=== PATIENT | female | born 1990 | race Caucasian/White ===

== ENCOUNTER 2019-01-25 05:30 | Inpatient (IN) | payer BC, OTHER ==
[2019-01-22 09:44] LABS: BASOPHILS 0.4 % (0-2); EOSINOPHILS 1.5 % (0-7); HEMATOCRIT 39.7 % (36.0-48.0); HEMOGLOBIN 13.1 g/dL (12-16); LYMPHOCYTES 34.7 % (15-50); MCH 27.9 pg (26.0-34.0); MCV 84.6 fL (80.0-100.0); MEAN PLATELET VOLUME 8.7 fL (7.4-10.4); NEUTROPHILS 56.4 % (40-80); PLATELET COUNT 339 10x3/uL (130-400); RBC 4.69 10x6/uL (4.00-5.40); RDW 13.4 % (11.5-14.5); WBC 5.4 10x3/uL (4.8-10.8)
[~2019-01-25] VITALS: Ht 165.1 cm; Wt 121.4 kg
[2019-01-25] VITALS (17 sets, daily range): BP systolic 105–133; BP diastolic 57–90; Ht 165.1 cm; Wt 121.4 kg
[~2019-01-25 05:30] MED LIST: LO LOESTRIN FE; LOESTRIN FE 1.51 TAB PO; NORCO 10/325 TA1 TA1 OR; ZOFRAN4 MG OTR
[2019-01-25 06:42] LABS: HCG URINE NEGATIVE (NEGATIVE)
--- NOTE | 2019-01-25 12:32 | NUR ---
1228 - CARE ASSUMED FROM TORITO MAYES RN
--- NOTE | 2019-01-25 13:20 | NUR ---
PT RCVD VIA STRETCHER TO ROOM 1273 FROM JALEEL IN RECOVERY. PT TRANSFERRED TO BED VIA BACK BOARD SLIDER. PT POSITIONED UP IN BED AND HOB ELEVATED TO APPROX 45DEGREES. PT IS SLIGHTY DROWSY BUT ORIENTED x3. PT RATES PAIN APPROX 9/10 AT THIS TIME, ABDOMINAL AND IN RIGHT SHOULDER AND ARM. LR INFUSING ORDERED TO PT'S RIGHT HAND PIV, C/D/I. NO SIGNS OF PHLEBITIS OR INFILTRATION. LARGE OCCLUSIVE DRESSING NOTED OVER LOW TRANSVERSE ABD INCISION IS C/D/I. NO VAGINAL BLEEDING NOTED, PERIPAD PLACED TO MONITOR. MARTINEZ CATH DRAINING PINK, BLOOD-TINGED URINE TO BEDSIDE DRAINAGE, TUBING SECURED VIA STAT LOCK TO INNER RIGHT THIGH. 45ML URINE EMPTIED FROM UROMETER. SCD'S ON LE BILAT AND ON PUMP. PT ASKING ABOUT PAIN MED AND WHERE HER FAMILY IS. SRUx2, CL PLACED IN PT'S HAND. WILL ADMIN PAIN MEDS ORDERED AND LOCATE PT'S FAMILY.
--- NOTE | 2019-01-25 13:57 | OP ---
PATIENT NAME: RADAMES KELLEY MEDICAL RECORD: [id number] :88 LOCATION:[facility] ADMISSION DATE: SURGEON: ROJAS AMIN MD DATE OF OPERATION: 01/25/2019 SURGEON: Dr. Malathi Lopez asked for intraoperative consultation. They were doing a diagnostic laparoscopy on a patient who had severe endometriosis. There were dense adhesions throughout the pelvis as well. The patient had had a previous oophorectomy causing additional pelvic adhesions. There were dense adhesions between the anterior surface of the rectum and posterior surface of the uterus. There were also several loops of small bowel adherent within the pelvis. I was called to evaluate the small and large bowel for injuries and/or defects. There was a serosal defect noted on the anterior surface of the colon. Serosa was reapproximated using interrupted 3-0 Vicryl suture. The small bowel loops were lysed with Metzenbaum scissor dissection. The small bowel was run. The small bowel was within the pelvis was run. There was no evidence of serosal defects noted. The pelvis was copiously irrigated and suctioned. Again, the sigmoid colon and rectum were meticulously inspected. There was no evidence of bowel injury. No evidence of bleeding, no evidence of succuss. The inferior portions of the small bowel were again run without any noticeable serosal defects. At this time, my portion of the procedure was terminated. Please see Dr. Lopez's operative note for full details of the operation. TRANSINT:[id number] Voice Confirmation ID: [id number] DOCUMENT ID: [id number] ROJAS AMIN MD at 1357 CC: [id number] DICTATION DATE: 01/25/19 1252 MANAGER MENTAL HEALTH: 01/25/[address] [facility] [address] [place] [address]
--- NOTE | 2019-01-25 14:12 | NUR ---
THIS RN TO ROOM FOR PT CHECK, INFORMED PT FAMILY NOT IN WAITING ROOM YET. PT C/O PAIN RATED 8/10 FOLLOWING ADMIN OF DOSE OF MORPHINE APROX 35MIN AGO. WILL NOTIFY DR WILLOUGHBY.
--- NOTE | 2019-01-25 14:22 | NUR ---
DR WILLOUGHBY PHONED REGARDING PT'S C/O PAIN RATED 8/10 APPROX 45MIN AFTER 4MG OF MORPHINE ADMIN IV. DR WILLOUGHBY ALSO INFORMED OF PT'S C/O RIGHT SHOULDER AND ARM PAIN. ORDERS RCVD FOR ADMIN ADDITIONAL 2MG MORPHINE x1 IVP NOW, AND PT MAY HAVE SIMETHICONE 80MG PO Q4HPRN, AND CLEAR LIQUID DIET VERIFIED. WILL PROCEED ORDERED.
--- NOTE | 2019-01-25 14:32 | NUR ---
THIS RN TO ROOM FOR PT CHECK. PT C/O NAUSEA, PT'S FATHER AT BEDSIDE. EMESIS BAG GIVEN, COOL CLOTHS TO PT'S FACE APPLIED BY HER MOTHER. PT ADMIN ZOFRAN IV, SEE EMAR FOR DOC. PT CONTINUES TO C/O PAIN, NOW RATES PAIN 9/10. WILL CHECK IF ORDER FOR MORPHINE IS VERIFIED BY PHARMACY AND ADMIN ORDERED.
--- NOTE | 2019-01-25 15:00 | NUR ---
PT ADMIN ONE TIME DOSE OF ADDITIONAL 2MG MORPHINE ORDERED, WELL PRN SIMETHICONE, SEE EMAR FOR DOC. 125ML PINK, BLOOD-TINGED URINE EMPTIED FROM MARTINEZ UROMETER. INCISION CHECK, OCCLUSIVE ABD DRSG NOTED TO BE C/D/I. PERIPAD CHECKED AND NOTED TO BE C/D. PT STATES "I WAS ON MY PERIOD, BUT IT SHOULD MOSTLY JUST BE SPOTTING NOW." ICE PACK REAPPLIED OVER ABD INCISION. PT'S MOTHER FEEDING HER ICE CHIPS AT THIS TIME. PT DENIES NAUSEA, STATES ZOFRAN HELPED. SRUx2, CL IN REACH. WILL CONT TO MONITOR.
--- NOTE | 2019-01-25 15:30 | NUR ---
THIS RN TO ROOM FOR PAIN REASSESSMENT. PT STATES PAIN IS STILL "ABOUT A 5, BUT MUCH BETTER THAN IT WAS." SCOPALAMINE PATCH BEHIND PT'S RIGHT EAR NOTED TO BE LOOSE, REAPPLIED TO SKIN. PT EATING ICE CHIPS FED BY HER MOTHER. PT DENIES FURTHER NEEDS AT THIS TIME. SRUx2, CL IN REACH.
--- NOTE | 2019-01-25 15:50 | NUR ---
THIS RN TO ROOM, PT NOTED TO BE DRY HEAVING, C/O WORSENING NAUSEA AND PAIN. PT RATES PAIN 6/[address] WILLOUGHBY PHONED IN SURGERY AND NOTIFIED OF PT'S COMPLAINTS. ORDER RCVD FOR 1MG DILAUDID IVP x1 NOW, AND 25MG PHENERGAN SLOW IVP Q4HPRN NAUSEA/VOMITING. WILL PROCEED ORDERED.
--- NOTE | 2019-01-25 16:15 | NUR ---
THIS RN TO ROOM. PT ADMIN 1MG DILAUDID ORDERED, 25MG PHENERGAN ORDERED, NEW BAG LR HUNG, AND ANCEF HUNG ORDERED, SEE EMAR FOR ALL MED DOCUMENTATION. PT SLEEPY, BEGINS SNORING BUT IS EASILY AROUSED TO VOICE. 2L OXYGEN APPLIED VIA NASAL CANNUAL TO MAINTAIN OXYGEN SAT >95%. 120ML PINK, BLOOD TINGED URINE EMPTIED FROM UROMETER. SRUx2, CL IN REACH. PT MOTHER AT BEDSIDE AT THIS TIME. WILL CONT TO MONITOR.
[2019-01-25 17:18] LABS: BASOPHILS 0.1 % (0-2); EOSINOPHILS 0 % (0-7); HEMATOCRIT 37.1 % (36.0-48.0); HEMOGLOBIN 12.1 g/dL (12-16); IMMATURE GRANULOCYTES 0.3 % (0-5); LYMPHOCYTES 3.9 % (15-50); MCH 28.4 pg (26.0-34.0); MCHC 32.6 g/dL (31.0-37.0); MCV 87.1 fL (80.0-100.0); MEAN PLATELET VOLUME 8.6 fL (7.4-10.4); MONOCYTES 7.8 % (2-11); NEUTROPHILS 87.9 % (40-80); PLATELET COUNT 332 10x3/uL (130-400); RBC 4.26 10x6/uL (4.00-5.40); RDW 13.7 % (11.5-14.5); WBC 19.1 10x3/uL (4.8-10.8)
[2019-01-25 17:41] LABS: ANION GAP 14.8 mmol/L (8-16); CALCIUM 7.7 mg/dL (8.5-10.1); CARBON DIOXIDE 25.5 mmol/L (21.0-32.0); POTASSIUM - SERUM 4.3 mmol/L (3.5-5.1)
--- NOTE | 2019-01-25 17:52 | NUR ---
THIS RN TO ROOM FOR PT CHECK, PT ALERTS TO VOICE, RATES PAIN 4/10, DENIES NEEDS. 90ML PINK BLOOD TINGED URINE EMPTIED FROM UROMETER. SRUx2, CL IN REACH. WILL CONT TO MONITOR.
--- NOTE | 2019-01-25 17:55 | NUR ---
OXYGEN TITRATED DOWN TO 1LITER.
--- NOTE | 2019-01-25 18:25 | NUR ---
PT SLEEPING, RESP EVEN AND UNLABORED. PT LEFT UNDISTURBED. SRUx2, CL IN REACH.
--- NOTE | 2019-01-25 20:00 | NUR ---
BEDSIDE REPORT WITH JACLYN GOLDSTEIN.
--- NOTE | 2019-01-25 20:12 | NUR ---
PT REC'D IN BED AT THIS TIME. DENIES NAUSEA AT THIS TIME. STATES PAIN IS A 5 AT THIS TIME. PT MEDICATED WITH MORPHINE 4 MG. WILL CONTINUE TO MONITOR. LUNGS CLEAR. NO BOWEL SOUNDS NOTED TO ABDOMEN AT THIS TIME. DRESSING TO THE ABDOMEN CDI AT THIS TIME. MARTINEZ CATH PATENT WITH BLOODY URINE NOTED. 200 ML EMPTIED AT THIS TIME. SCDS IN PLACE AT THIS TIME AND FUNCTIONAL. NO ACUTE DISTRESS NOTED AT THIS TIME. SIDERAILS UP FOR SAFETY. CALL LIGHT IN PT REACH. Quynh TOWNSEND RN
--- NOTE | 2019-01-25 21:20 | NUR ---
100 ML EMPTIED FROM MARTINEZ. PT STATES THAT PAIN IS A 3. NO DISTRESS NOTED. Quynh TOWNSEND RN
--- NOTE | 2019-01-25 22:40 | NUR ---
PT REC'D IN BED AT THIS TIME. STATES PAIN IS ABOUT A 4.5. WILL CONTINUE TO MONITOR. 50 ML EMPTIED FROM MARTINEZ AT THIS TIME. Quynh TOWNSEND RN
--- NOTE | 2019-01-25 23:07 | NUR ---
PT COMPLAINS THAT PAIN IS A 7. DR WILLOUGHBY CALLED AND INFORMED OF PAIN. ONE TIME ORDER RUDOLPH DILAUDID 1 MG GIVEN AT THIS TIME. Quynh TOWNSEND RN
--- NOTE | 2019-01-25 23:21 | NUR ---
DILAUDUD ONE MG GIVEN AT THIS TIME. WILL MONITOR. Quynh TOWNSEND RN
--- NOTE | 2019-01-26 01:55 | NUR ---
PT RESTING WELL AT THIS TIME. STATES PAIN IS ABOUT A 3. MARTINEZ EMPTIED. 150 ML NOTED. Quynh TOWNSEND RN
[2019-01-26 03:52] VITALS: BP 127/67
--- NOTE | 2019-01-26 03:52 | NUR ---
pt states that she is hurting at an 8/10 on the pain scale and that she is also nauseated. 80 ml emptied from brooke cath.vss. no acute distress noted at this time. scds on and functional. jerad siu rn
[2019-01-26 07:18] LABS: BASOPHILS 0.1 % (0-2); EOSINOPHILS 0 % (0-7); HEMATOCRIT 36.2 % (36.0-48.0); HEMOGLOBIN 11.7 g/dL (12-16); IMMATURE GRANULOCYTES 0.3 % (0-5); LYMPHOCYTES 12.5 % (15-50); MCH 28.2 pg (26.0-34.0); MCHC 32.3 g/dL (31.0-37.0); MCV 87.2 fL (80.0-100.0); MONOCYTES 7.5 % (2-11); NEUTROPHILS 79.6 % (40-80); PLATELET COUNT 321 10x3/uL (130-400); RBC 4.15 10x6/uL (4.00-5.40); RDW 14.2 % (11.5-14.5)
[2019-01-26 07:19] LABS: WBC 11.2 10x3/uL (4.8-10.8)
[2019-01-26 07:37] LABS: CARBON DIOXIDE 28.2 mmol/L (21.0-32.0); CHLORIDE - SERUM 105 mmol/L (98-107); CREATININE - SERUM 0.8 mg/dL (0.6-1.3); SODIUM 141 mmol/L (136-145); UREA NITROGEN 6 mg/dL (7-18); eGFR NON AFRICAN AMERICAN 89 mL/min (90-120)
[2019-01-26 07:39] LABS: CALC OSMOLALITY 278 mosm/kg (275-300); GLUCOSE 100 mg/dL (74-106); POTASSIUM - SERUM 3.5 mmol/L (3.5-5.1)
--- NOTE | 2019-01-26 08:09 | NUR ---
CALLED TO ROOM PT RATES PAIN AT 9/10 AND REQUEST PAIN MED.
--- NOTE | 2019-01-26 08:17 | OP ---
PATIENT NAME: RADAMES KELLEY MEDICAL RECORD: [id number] :88 LOCATION:[facility] ADMISSION DATE:01/25/19 SURGEON: BANDAR SAHU MD DATE OF OPERATION: 01/25/2019 SURGEON: Bandar Sahu MD RADIOACTIVITY TECHNICIAN: Dr. Malathi Lopez ANESTHESIA: General anesthesia by Armando Carmichael CRNA. DIAGNOSES: A 10 cm left pelvic mass, probably endometrioma. Bladder laceration on the dome of the bladder, about 2.5 cm in length. PROCEDURE: 1. Bladder repair. 2. Cystoscopy, left retrograde pyelogram, insertion of a left ureteral stent 6-Dutch x 24 cm without string attached. 3. Repair with serosal tears on the colon. FINDINGS: A 2.5 cm laceration on the dome of the bladder. Single ureteral orifices without bladder tumors. Intact left ureter on retrograde pyelogram. Serosal tears on the sigmoid colon. BLOOD LOSS: None. CLINICAL HISTORY: This is a 28-year-old female, who has a large pelvic mass as noted on imaging. She is having this mass removed today by Dr. Lopez and Dr. Vaca DESCRIPTION OF PROCEDURE: They are entering the abdomen through a Pfannenstiel incision. As soon as they got through the rectus sheath in the midline, they found that they had actually cut through into the bladder. At this point, a urology consultation was called. I came in. The patient was asleep and under general anesthesia. The abdomen was opened. I worked to free the anterior bladder surface on the dome of all adhesions. The bladder was adherent to the undersurface of the rectus sheath and this is how this injury happened. With Metzenbaums and with the Bovie, the bladder surface was freed from the rectus. Also, I worked to make sure that the bladder surface was freed laterally and in the space of Retzius. At this point, we now had the planes well defined. We placed our [place] retractor. A moistened lap sponge was placed to hold the intestines back. A retractor blade was placed in the middle to hold the intestine back. Stay sutures of 2-0 nylon were placed on either apex of the transverse bladder laceration. A 2-layer closure with 3-0 Vicryl was used in running fashion to close the bladder. The first layer took the entire bladder wall thickness. The second layer was a seromuscular layer. Because the mass is going to be involving the distal left ureter, the plan was also to insert a left ureteral stent. Her Paniagua catheter was removed. We then inserted a 21-Dutch cystoscope with 30-degree lens. The bladder repair site was seen. While the bladder was being distended with irrigation fluid, we could see a pin hole where there was persistent leakage of urine. [id number] sutures of Vicryl were used to close this pin hole in the bladder dome. An open-ended ureteral catheter was placed in the left ureteral orifice and diluted contrast was injected for retrograde pyelogram. The left ureter was completely intact with no areas of extravasation. No filling defects and no hydronephrosis. Through OPERATIVE REPORT [id number] RADAMES KELLEY the lumen of the ureteral catheter, we inserted a Sensor wire up into the renal pelvis. This was done under fluoroscopic guidance. The ureteral catheter was then removed and the stent was placed over the guidewire into the renal pelvis. Once the stent was in correct position, the wire was withdrawn entirely. The distal end of the stent was pushed in using a pusher. In our instance, the distal end of the stent went into the intramural portion of the ureter. I had to use a rigid ureteroscope and a 1.9-Dutch 0-tip basket to retrieve the end of the stent and then put it back into the bladder until it coiled properly. Final fluoroscopy revealed that the stent was in correct position. At this point, the scope was removed. Another new 16-Dutch Paniagua catheter was placed into the bladder. The balloon was inflated with 10 cc of sterile water and this was put to bag drainage. Right adjacent to the bladder, we noticed some areas of serosal laceration on the descending and sigmoid colon. These were repaired with simple interrupted seromuscular sutures of 3-0 Vicryl. At this point, Dr. Vaca and Dr. Lopez will continue with their surgery. I have also recommended that they contact general surgery to run the bowel before closing in order to make sure that the bowel was intact. Finally, I have recommended that they insert a Eamon-Reagan drain to drain the pelvis in case of any urinary extravasation from the bladder repair. The plan is for a cystogram in 7-10 days to check for bladder healing before pulling the Paniagua catheter out. TRANSINT:[id number] Voice Confirmation ID: [id number] DOCUMENT ID: [id number] BANDAR SAHU MD at 0817 CC: [id number] DICTATION DATE: 01/25/19 1039 ASSURANCE ASSISTANT: 01/25/19 1053 ADM IN [facility] [id number] [place] [address]
--- NOTE | 2019-01-26 08:19 | NUR ---
PAIN MED GIVEN PER ORDERS SCANNED TO EMAR. SIMITHICONE PO ALSO GIVEN AT THIS TIME. ASSESSMENT COMPLETED CHARTED TO FLOWSHEET. ABDOMEN SOFT TO TOUCH BUT BOWEL SOUNDS HYPOACTIVE X 4. SCD'S BILAT AND PUMP IS ON, IF TO RIGHT HAND PATENT AND INFUSING PER ORDERS, PT DENIES PAIN OR DISCOMFORT AT SITE. INCISION CLEAN AND DRY, REMOVED BANDAGE THIS AM. MARTINEZ CATH TO BEDSIDE DRAIN WITH 200ML DARK URINE NOTED TO CANISTER. SIDE RAILS UP X 2 WITH CALL LIGHT IN REACH.
--- NOTE | 2019-01-26 09:10 | NUR ---
pt rates pain at 5/10 and states cramping is not as bad. continue to complain of nausea, Zofran given as scanned to emar. 300ml dark urine noted to brooke collection canister. Assistance given with turning more to her right side. side rails up x 2 with call light and phone in reach.
--- NOTE | 2019-01-26 10:00 | NUR ---
PT RATES PAIN AT 2/10. DENIES NEEDS AT THIS TIME. CALL LIGHT AND PHONE IN REACH.
--- NOTE | 2019-01-26 11:30 | NUR ---
CALLED TO ROOM, PT ASKING FOR ASSISTANCE WITH FINDING AND PUTTING ON HER SOX. DENIES ANY OTHER NEEDS AT THIS TIME.
--- NOTE | 2019-01-26 12:30 | NUR ---
PAIN MED GIVEN FOR C/O PAIN THAT SHE RATES AT 8/10, SEE EMAR. PT TURNED SELF TO HER BACK AND DOES TAKES SEVERAL DEEP BREATHS AND COUGH X 1. SIDE RAILS UP X 2 WITH CALL LIGHT IN REACH.
--- NOTE | 2019-01-26 14:19 | NUR ---
CALLED TO ROOM, PT STATES THAT DR WILLOUGHBY REQUESTED TO BE NOTIFIED WHEN PT FATHER ARRIVED, HE IS AT BEDSIDE NOW. CALLED.
[2019-01-26 16:30] VITALS: BP 123/80
--- NOTE | 2019-01-26 16:30 | NUR ---
PAIN MED GIVEN SCANNED TO EMAR. IV SALINE LOCKED. PT TILTED SELF TO LEFT SIDE. LIGHTS TURNED DOWN PER REQUEST. VS CHARTED ON FLOWSHEET.
--- NOTE | 2019-01-26 18:30 | NUR ---
DR WILLOUGHBY CALLED ABOUT TORDAL ORDERS, NEW ORDERS RECIEVED FOR TORDAL 30MG IV EVERY 6HOURS, LOVENOX 40MG DAILY, MD ALSO PLACED ORDERS FOR PO ANTIBIOTICS.
--- NOTE | 2019-01-26 18:52 | NUR ---
PT RATES PAIN AT 1/10, REQUESTING TO GET UP TO SITTING ON SIDE OF BED AND POSSIBLY TAKE A SHOWER. MARTINEZ CATH EMPTIED WITH TOTAL OUTPUT 2100ML. PT STATES SHE NEEDS SHAMPOO AND SOAP. SHOWER CHAIR NOTED TO BE IN BATHROOM.
--- NOTE | 2019-01-26 19:29 | NUR ---
IV IN RIGHT HAND INTACT WITH NO REDNESS OR EDEMA, NEW BAG OF LR HUNG INFUSING VIA PUMP AT 125 ML/HR PER MD ORDERS, SEE EMAR, INFORMED PT THAT I WILL BE BACK SHORTLY TO DO ASSESSMENT, PT VERBALIZES UNDERSTANDING, RATES INC PAIN 07/22, DISCUSSED PAIN MANAGEMENT WITH PT, PT VERBALIZES UNDERSTANDING, SCD'S ON AND WORKING PROPERLY, DENIES NEEDS AT THIS TIME, BED IN LOW POSITION, SIDE RAILS X 2, CALL LIGHT IN REACH
[2019-01-26 20:06] VITALS: BP 114/66
--- NOTE | 2019-01-26 20:06 | NUR ---
ASSESSMENT PER FLOW SHEET, VS OBTAINED, [employer] WITH DERMABOND CDI WITH NO DRAINAGE NOTED, PT DENIES FLATUS, RATES INC PAIN 07/22, ADM MORPHINE SIVP, LEVAQUIN PO AND LOVENOX SUBQ PER MD ORDERS, SEE EMAR, POC DISCUSSED WITH PT ABOUT GETTING UP AND AMB TONIGHT, PT VERBALIZES UNDERSTANDING, PT INST ON AND DEMONSTRATED I.S. WITH FAIR EFFORT, MARTINEZ CATH INTACT DRAINING BLOOD TINGED URINE, PT DENIES ANY NAUSEA, SMALL SPLINT PILLOW PROVIDED, PT DENIES NEEDS AT THIS TIME
--- NOTE | 2019-01-26 21:07 | NUR ---
PT AWAKE, ADM TORADOL SIVP PER MD ORDERS, SEE EMAR, INFORMED PT THAT I WILL BE BACK SHORTLY TO GET UP UP TO AMB, PT VERBALIZES UNDERSTANDING, DENIES FURTHER NEEDS
--- NOTE | 2019-01-26 22:00 | NUR ---
PT INST ON AMB IN [place], PT TO SIDE OF BED, PT STANDS AT SIDE OF BED, DENIES ANY DIZZYNESS OR LIGHTHEADEDNESS, ABD BINDER APPLIED, PT AMB, GAIT STEADY, TO NURSES DESK WITH THIS RN AT SIDE, PT BACK TO ROOM, COMPLETE BEDDING CHANGE DONE, PT TO BED, SCD'S REAPPLIED AND WORKING PROPERLY, PT REQUESTED AND SERVED FRESH H20, BEDSIDE TABLE PLACED PER PT'S REQUEST, PT STATES "I'M GOING TO WATCH HULU FOR A LITTLE WHILE", PT DENIES FURTHER NEEDS, BED IN LOW POSITION, SIDE RAILS X 2, CALL LIGHT IN REACH
--- NOTE | 2019-01-26 22:50 | NUR ---
PT PROFESSIONAL TUTOR LIGHT, PT C/O SLIGHT NAUSEA, ADM ZOFRAN SIVP PER MD ORDERS, SEE EMAR, PT RATES INC PAIN 06/21, DENIES FURTHER NEEDS AT THIS TIME
[2019-01-26 23:58] VITALS: BP 107/59
--- NOTE | 2019-01-26 23:58 | NUR ---
PT QUICK SKETCH ARTIST LIGHT, REQUESTED BEDSIDE TABLE LOWERED, VS OBTAINED, ADM MORPHINE PER MD ORDERS, SEE EMAR, MARTINEZ CATH EMPTIED, PT DENIES NAUSEA THIS TIME, STATES "I FEEL BETTER, I'VE HAD A FEW SIPS OF WATER", PT RATES INC PAIN 06/21, DENIES NEEDS AT THIS TIME
--- NOTE | 2019-01-27 00:36 | NUR ---
PT AROUSES TO OPENING OF DOOR, DENIES NEEDS AT THIS TIME, BED IN LOW POSITION, SIDE RAILS X 2, CALL LIGHT IN REACH
--- NOTE | 2019-01-27 02:27 | NUR ---
PT RESTING WITH EYES CLOSED, RESP QUIET, NO DISTRESS NOTED, LEFT UNDISTURBED AT THIS TIME, SCD'S CONTINUE ON AND WORKING PROPERLY, BED IN LOW POSITION, SIDE RAILS X 2, CALL LIGHT IN REACH
[2019-01-27 03:16] VITALS: BP 109/59
--- NOTE | 2019-01-27 03:16 | NUR ---
IV BEEPING, THIS RN TO ROOM, NEW BAG OF LR HUNG AND ADM TORADOL SIVP PER MD ORDERS, SEE EMAR, VS OBTAINED, DENIES NEEDS AT THIS TIME
--- NOTE | 2019-01-27 05:22 | NUR ---
PT RESTING WITH EYES CLOSED, AROUSES TO ME IN ROOM, MARTINEZ CATH EMPTIED, PUMPS CLEARED, PT RATES INC PAIN 0/10, DENIES NEEDS AT THIS TIME
[2019-01-27 07:18] VITALS: BP 111/64
--- NOTE | 2019-01-27 08:00 | NUR ---
AM ASSESSMENT COMPLETED. SEE FLOWSHEET. SR UP X 2, CALL LIGHT AND PHONE WITHIN REACH.
--- NOTE | 2019-01-27 09:16 | NUR ---
DR WILLOUGHBY VISITING PATIENT. NOTIFIED PER REPORT PT HAS HAD A KUMAR SINCE LAST NIGHT.
--- NOTE | 2019-01-27 09:23 | NUR ---
ASSUMED CARE OF THIS PATIENT SITTING UP IN BED. SCHEDULED TORADOL GIVEN. INCENTIVE SPIROMETER USED X 10 TIMES WITH WEAK COUGH. INSTRUCTIONS GIVEN ON USE AND ENCOURAGED USED Q HOUR. VERBALIZED UNDERSTANDING. DESIRES TO WALK.
--- NOTE | 2019-01-27 10:00 | NUR ---
AMBULATED IN [place] AROUND PP, NURSERY AND BACK TO ROOM 2 TIMES. TOLERATED WELL. 2/10 INCISIONAL THROBBING. DESIRES SHOWER. IV SITE COVERED. ASSISTED WITH ITEMS IN BATHROOM. SHOWER CHAIR IN SHOWER, EMERGENCY CORD INSTRUCTIONS GIVEN.
--- NOTE | 2019-01-27 10:20 | NUR ---
FINISHED SHOWER. SAYS SHE FEELS SO MUCH BETTER. DRY MILE-PAD PLACED OVER INCISION. IV SITE PATENT WITHOUT SIGNS OF INFILTRATION. DESIRES TO AMBULATE AGAIN BUT THEN DECIDED TO RETURN TO BED. PLANS TO AMBULATE BEFORE OR AFTER LUNCH. SCD'S REPLACED AND WORKING BILATERALLY. COMPLETE LINEN CHANGE WAS COMPLETED WHILE IN SHOWER. FRESH WATER, LEMON [place] DRINK AND JELLO GIVEN. MARTINEZ DRAINING DARK RED BLOODY URINE. ATTACHED TO RIGHT THIGH. REQUESTED COMPUTER. SIDE RAILS UP X 2, CALL LIGHT IN REACH. /10 INCISIONAL THROBBING, TO NOTIFY NURSE IF INCREASE IN PAIN OR NEEDING ANYTHING. VERBALIZED UNDERSTANDING.
--- NOTE | 2019-01-27 11:00 | NUR ---
PT CALLS OUT SQL SSRS DEVELOPER LIGHT AND ASKS ME "DID YOU EVER FIND OUT ANYTHING I CAN TAKE FOR MY HEADACHE". EXPLAINED TO PT SHE WAS GIVEN MORPHINE, FOLLOWED BY TORADOL. PT STATES "IT DIDN'T HELP MY HEADACHE, BUT THE LIGHTS BEING OUT DOES HELP IT". PHONE CALL MADE TO DR. WILLOUGHBY, IN SURGERY ROOM XT #[id number] WITH REPORT GIVEN TO JALEEL CASTRO RN.
--- NOTE | 2019-01-27 11:06 | NUR ---
JALEEL CASTRO RN RETURNS CALL WITH TELEPHONE ORDER RECEIVED TO ADMINISTER FIORCET ONE PO NOW FOR C/O HEADACHE.
[2019-01-27 11:24] VITALS: BP 122/70
--- NOTE | 2019-01-27 11:24 | NUR ---
FIORICET 1 GIVEN PO FOR RELIEF OF 4/10 THROBBING BEHIND EYE. HX OF PRIOR COKE DRINKING BUT STOPPED. NOW DRINKS NESTE ICE TEAS. EXPLAINED TO PT THAT TEA HAS CAFFEINE. POSSIBLE WITHDRAWL KUMAR RELATED TO ICE TEA, MEDICATIONS, OR LACK OF EATING. VERBALIZED UNDERSTANDING. LIGHTS TURNED ON LOW. POSITIONED TO LEFT SIDE TO PROMOTE PASSING FLATUS, SAYS "IT'S RIGHT THERE". SIDE RAILS UP X 2, CALL LIGHT IN REACH. TO CALL IF ANYTHING IS NEEDED.
--- NOTE | 2019-01-27 14:00 | NUR ---
AMBULATED IN [place] X 3 CIRCLES TO POST AND BACK. SAYS HER KUMAR WENT AWAY AFTER THE FIORICET . ATE 75% CLEAR LIQUID DIET. REQUESTED JELLO [place] AND LEMON [place] DRINK. RETURNED TO ROOM AFTER AMBULATING. TOLERATED WELL.
--- NOTE | 2019-01-27 14:50 | NUR ---
AMBULATED IN [place] AGAIN AND SAT ON COUCH FOR AWHILE. AFTER RETURNING TO BED C/O 07/22 INCISIONAL THROBBING STINGING. SCHEDULED TORADOL 10 MG GIVEN IVP AFTER DISCUSSING PAIN MANAGEMENT OPTIONS. SHE WILL LET RN KNOW IF SHE NEEDS SOMETHING ADDITIONAL TO TORADOL. WATCHING MOVIE ON COMPUTER. SCD'S ON BILATERALLY AND FUNCTIONING. SIDE RAILS UP X 2, CALL LIGHT IN REACH.
--- NOTE | 2019-01-27 15:31 | NUR ---
C/O SHARP PAIN THAT "MOVES". 08/21 "MODERATE" DISCUSSED PAIN MANAGEMENT OPTIONS. MORPHINE 2 MG GIVEN SLOW IVP FOR BREAK THROUGH PAIN AFTER TORADOL VS GAS PAINS. WILL ALSO GIVE MYLICON 80 MG FOR RELIEF. DID NOT MEET CRITERIA FOR SEVERE PAIN REQUIRING 4 MG MS AT THIS TIME. SIDE RAILS UP X 2, CALL LIGHT IN REACH. PULSE OX ON.
[2019-01-27 16:14] VITALS: BP 114/69
--- NOTE | 2019-01-27 16:19 | NUR ---
WATCHING MOVIE ON COMPUTER. DENIES PAIN 0/10. NO REQUESTS. VS OBTAINED. TO CALL IF ANYTHING IS NEEDED. SAYS SHE HAS PASSED SMALL AMOUNTS OF GAS. SIDE RAILS UP X 2, CALL LIGHT IN REACH.
--- NOTE | 2019-01-27 17:29 | NUR ---
DR NAVARRO ON L&D. AWARE OF THIS PATIENT AND HER SURGERY. PT PASSING FLATUS AND WITHOUT N&V. ORDERS RECEIVED FOR REGULAR DIET TOLERATED. PT CURRENTLY SLEEPING. MARTINEZ DRAINING LIGHT RED URINE, CLEARED UP FROM EARLIER TODAY. WILL TRANSFER WHEN AWAKE TO [facility]. RESPIRATIONS EVEN.
--- NOTE | 2019-01-27 17:59 | NUR ---
C/0 GAS PAIN UPPER ABDOMEN. TOO SOON FOR MYLICON, DESIRED TO AMBULATE. READY TO EAT. AMBULATED TO NEW ROOM 1223. TOLERATED WELL. PT MOTHER IS VISITING. ALL BELONGINGS MOVED TO NEW ROOM. PLANS TO AMBULATE MORE THIS PM. REMINDED NOT TO OVER DUE IT. INSTRUCTED SHE CAN TAKE ANOTHER SHOWER LATER IF SHE DESIRES. ORIENTED TO NEW ROOM. SIDE RAILS UP X 2, CALL LIGHT IN REACH. CURRENTLY SITTING ON EDGE OF BED WAITING ON REGULAR DIET.
--- NOTE | 2019-01-27 18:08 | NUR ---
PT AMBULATORY IN HALLWAY WITH FAMILY MEMBER. PT STATED SHE IS PASSING GAS. RATES PAIN IN ABD AT 4/10. PT DENIES ALL OTHER NEEDS AT THIS TIME.
--- NOTE | 2019-01-27 18:24 | NUR ---
ROUNDING COMPLETED BY THIS RN. BOWEL SOUNDS ACTIVE X4. PT STATES PASSING GAS. MOM AT BEDSIDE. DINNER TRAY ON BEDSIDE TABLE. DENIES ALL OTHET NEEDS AT THIS TIME. SRUPX2, CALL LIGHT AND PHONE WITHIN REACH.
[2019-01-27 19:30] VITALS: BP 128/81
--- NOTE | 2019-01-27 19:30 | NUR ---
ASSESSMENT PER FLOW SHEET, VS OBTAINED, IV IN RIGHT HAND INTACT WITH NO REDNESS OR EDEMA INFUSING VIA PUMP LR AT 125 ML/HR, [employer] WITH DERMABOND CDI, MILE PAD OVER INC FOR COMFORT AND MOISTURE CONTROL, PEA SIZE DRIED DRAINAGE NOTED TO RIGHT SIDE OF MILE PAD, PT REQUESTING TO TAKE SHOWER THIS EVENING, INFORMED PT THAT WE WILL GET HER UP FOR THAT, PT REPORTS SMALL FLATUS OR BM, MARTINEZ CATH INTACT DRAINING LIGHTLY BLOOD TINGED URINE, PT DENIES NAUSEA OR PAIN AT THIS TIME, SCD PUMP NOTED TO BE OFF AT THIS TIME, PUMP TURNED ON, SCDS WORKING PROPERLY, PT REQUESTED AND SERVED FRESH H20, DINNER TRAY REMOVED, DENIES FURTHER NEEDS, BED IN LOW POSITION, SIDE RAILS X 2, CALL LIGHT IN REACH
--- NOTE | 2019-01-27 20:23 | NUR ---
PT RESTING WITH EYES CLOSED, RESP QUIET, NO DISTRESS NOTED, LEFT UNDISTURBED AT THIS TIME
--- NOTE | 2019-01-27 20:42 | NUR ---
PT STAFFING COORDINATOR LIGHT, PT REPORTS IV IS HURTING, IV IN RIGHT HAND NOTED TO BE SLIGHTLY SWOLLEN, IV D/C'ED TIP INTACT, PRESSURE HELD, BANDAID APPLIED, PT READY TO TAKE SHOWER, INFORMED PT THAT I WILL GET EVERYTHING TOGETHER AND GET HER UP TO SHOWER, PT VERBALIZES UNDERSTANDING
--- NOTE | 2019-01-27 20:55 | NUR ---
PT UP TO SHOWER, GAIT STEADY, WITH ASSISTANCE, SHOWER CHAIR PROVIDED, PT INST TO USE CALL LIGHT WHEN FINSIHED
--- NOTE | 2019-01-27 21:26 | NUR ---
PT REFRACTORY TILE HELPER LIGHT, PT FINISHED SHOWERING, ASSISTED PT WITH DRYING OFF, CLEAN GOWN APPLIED, PT BACK TO BED, INC DRIED OFF MORE, MILE PAD PLACED FOR COMFORT AND MOISTURE CONTROL, PT REQUESTED AND THIS RN PLACED PT'S OWN SOCKS ON FEET, PT C/O SLIGHT NAUSEA, REQUESTS PHENERGAN, INFORMED PT THAT I WILL JACLYN SOLIS FROM L&D WILL COME OVER TO RESTART IV, AND I WILL THEN ADM PHENERGAN AND TORADOL, PT VERBALIZES UNDERSTANDING, SCD'S PLACED BACK ON AND WORKING PROPERLY, PT DENIES FURTHER NEEDS AT THIS TIME, BED IN LOW POSITION, SIDE RAILS X 2, CALL LIGHT IN REACH
--- NOTE | 2019-01-27 21:34 | NUR ---
[facility] NOTIFIED FOR LOVENOX AND FIORICET
--- NOTE | 2019-01-27 21:48 | NUR ---
IRMA AVILES RN TO ROOM FOR IV START
--- NOTE | 2019-01-27 21:57 | NUR ---
IRMA AVILES RN STARTED IV IN LEFT HAND WITH 22 GAUGE, 2ND ATTEMPT, LR RESTARTED PER MD ORDERS
--- NOTE | 2019-01-27 22:09 | NUR ---
PT C/O SLIGHT NAUSEA AND KUMAR, ADM 2100 MEDS AND FIORICET PER MD ORDERS, SEE EMAR, PHENERGAN ADM SIVP OVER 10 MIN, PT GOPI WELL
--- NOTE | 2019-01-27 22:27 | NUR ---
PT TALKING ON PHONE, PT REPORTS NAUSEA IS BETTER, SCD'S CONTINUE ON AND WORKING PROPERLY, DENIES FURTHER NEEDS
[2019-01-28 00:20] VITALS: BP 121/80
--- NOTE | 2019-01-28 00:20 | NUR ---
PT RESTING WITH EYES CLOSED, AROUSES TO SOFT VERBAL STIMULATION, VS OBTAINED, MARTINEZ CATH EMPTIED, PT DENIES PAIN, SCD'S CONTINUE ON AND WORKING PROPERLY, BED IN LOW POSITION, SIDE RAILS X 2, CALL LIGHT IN REACH
--- NOTE | 2019-01-28 02:36 | NUR ---
PT AROUSES TO OPENING OF DOOR, NEW BAG OF LR HUNG VIA PUMP INFUSING AT 125 M/HR, PT RATES INC PAIN 06/21, ADM TORADOL SIVP PER MD ORDERS, SEE EMAR, SCD'S CONTINUE ON AND WORKING PROPERLY, DENIES FURTHER NEEDS
[2019-01-28 04:04] VITALS: BP 128/83
--- NOTE | 2019-01-28 04:04 | NUR ---
PT RESTING WITH EYES CLOSED, AROUSES TO SOFT VERBAL STIMULATION, VS OBTAINED, I&O'S COLLECTED, ADM TORADOL SIVP PER MD ORDERS, SEE EMAR, SCD'S CONTINUE ON AND WORKING PROPERLY, PT DENIES NEEDS AT THIS TIME, BED IN LOW POSITION, SIDE RAILS X 2, CALL LIGHT IN REACH
--- NOTE | 2019-01-28 07:10 | NUR ---
TO ROOM FOR BEDSIDE REPORT. PT CURRENTLY SLEEPING AND NOT DISTURBED AT THIS TIME. NO BEDSIDE REPORT DONE. REPORT REC'D FROM Quynh GONSALES RN
[2019-01-28 07:20] VITALS: BP 131/82
--- NOTE | 2019-01-28 07:20 | NUR ---
PT NOW AWAKE. SHIFT ASSESSMENT COMPLETED. PT AA&O X 4. PAIN ASSESSED. PT REPORTS PAIN 2/10 REPORTS SHE STILL HAS A HEADACHE THAT DOESN'T SEEM TO GO AWAY. PT CHEERFUL AND CONVERSATING. BREATH SOUNDS CLEAR AND EQUAL. ABD SOFT, NON DISTENDED. BOWEL SOUNDS HYPOACTIVE. PT REPORTS SHE HAS BEEN AMBULTING AND PASSING "SOME" GAS. PT ENCOURAGED TO CONTINUE AMBULTING AND DIET EDUCATION PROVIDED. PT VERBALIZES UNDERSTANDING AND AGREEABLE. MARTINEZ CATH REMAINS IN PLACED AND DRAINING VIA GRAVITY. NO EDEMA NOTED TO LOWER EXTREMITIES. PEDAL PULSE PRESENT X 2.SCD WRAPS ON BILATERALLY. CONNECTED TO PUMP. PUMP IS ON AND FUNCTIONING. PT DENIES ANY PAIN IN LOWER EXTREMITIES. BEDSIDE TABLE PROVIDED AND PT BEGINS TO EAT REGULAR DIET SERVED. FRESH ICE WATER AND SPRITE SERVED. BED LOW, SIDE RAILS UP X 2. CALL LIGHT AT PT'S SIDE.
--- NOTE | 2019-01-28 07:48 | NUR ---
DR WILLOUGHBY TO SEE PT AT THIS TIME. NEW ORDERS REC'D.
--- NOTE | 2019-01-28 08:20 | NUR ---
ROUNDS MADE. PT NOW READY TO GET OUT OF BED TO AMBULATE IN HALLS. PT OOB W/MINIMAL ASSSIST. AMBULATES IN HALLS. BED LINENS CHANGED AT THIS TIME.
--- NOTE | 2019-01-28 08:25 | NUR ---
PT RETURNS TO ROOM. STATES SHE WANTS TO SHOWER AT THIS TIME. HIBICLENSE SOAP PROVIDED. PT'S IV SITE SALINE LOCKED AND COVERED. PT ASSISTED W/GETTING INTO SHOWER.
--- NOTE | 2019-01-28 08:32 | NUR ---
PT REPORTS SHE IS NAUSEATED AFTER WALKING AND REQUEST ZOFRAN AT THIS TIME. ZOFRAN 4MG ADMIN PRIOR TO PT GETTING IN SHOWER.
--- NOTE | 2019-01-28 09:15 | NUR ---
PT OUTOF SHOWER AT THIS TIME. REPORTS SHE SAT ON THE COMMODE FOR SEVERAL MINUTES AND WAS ABLE TO PASS A MODERATE AMOUNT OF FLATUS. PT ASSISTED W/DRYING AND BACK TOBED. CLEAN GOWN PROVIDED. PERIPAD PLACED OVER INCISION SITE. SCD WRAPS PLACED ON LE'S X 2. CONNECTED TO PUMP. PUMP IS ON AND FUNCTIONING. IV FLUID LINE OF LR RECONNECTED TO IV SITE.PUMP ON TO INFUSE AT 125ML/HR. IV SITE WNL W/OUT REDNESS OR SWELLING. MARTINEZ CATH REMAINS IN PLACE AND DRAING VIA GRAVITY AT BEDSIDE. BLOODY URINE NOTED. TASKS COMPLETLED AT 0935.
--- NOTE | 2019-01-28 09:46 | NUR ---
PT NOW C/O ABD PAIN 09/21. PERCOCET 10/325MG ONE TAB PO GIVEN PER MD ORDERS. 1CTABATHA MARCELINO SERVED. PT STILL HAS ICE WATER AND SPRITE AT BEDSIDE.DENIES FURTHER NEEDS AT THIS TIME. CALL LIGHT AT PT'S SIDE.
--- NOTE | 2019-01-28 10:30 | NUR ---
PT RINGS CALL REQUESTING ICE CREAM TO EAT. REPORTS SHE HAS EATEN THE JELLO AND NOW FEELS HUNGRY.1 CUP ICE CREAM SERVED. PT REPORTS PAIN IS A 0/10 AND EVEN HER HEADACHE IS GONE. NO FURTHER NEEDS VOICED.
--- NOTE | 2019-01-28 11:10 | NUR ---
PT RINGS CALL LIGHT REQUESTING ANOTHER CUP OF ICE CREAM AND AND ANOTHER SPRITE. BOTH SERVED. PT STATES "I'M ACTUALLY HUNGRY". DENIES PAIN AT PRESENT.
--- NOTE | 2019-01-28 11:35 | NUR ---
NEW BAG LR UP TO INFUSE AT 125ML/HR. PT REQUESTING A 3RD CUP OF ICE CREAM AND QUESTIONS WHEN LUNCH WILL BE HERE SHE IS HUNGRY. PT INFORMED LUNCH SHOULD ARRIVE SHORTLY
--- NOTE | 2019-01-28 12:15 | NUR ---
ROUNDS MADE FOR VITAL SIGNS. PT SITTING UP IN BED TALKING ON THE PHONE. DENIES PAIN AT PRESENT. SCHEDULED MOTRIN STARTED AT THIS TIME. SEE FLOWSHEET FOR VITALS. DENIES NEEDS.
[2019-01-28 12:18] VITALS: BP 136/88
--- NOTE | 2019-01-28 13:17 | NUR ---
PT RINGS CALL LIGHT REQUESTING ANOTHER SPRITE TO DRINK AND REPORTS SHE IS EATING BETTER AND IS NO NAUSEATED. SPRITE SERVED.
--- NOTE | 2019-01-28 14:00 | NUR ---
PT RINGS CALL LIGHT. THIS RN TO BEDSIDE. PT W/C/O PAIN IN HER LEFT HAND. UPON INSPECTION, PT'S HAND IS SWOLLEN. IV SITE HAS INFILTRATED. IV PUMP STOPPED. IV CATH REMOVED INTACT. BAND AID PLACED OVER SITE. ICE PLACED ON SITE. PT REQUEST TO GET UP TO AMBULATE ONCE HER HAND STOPS THROBGING. DENIES FURTHER NEEDS AT THIS TIME.
--- NOTE | 2019-01-28 14:30 | NUR ---
PT TO SITTING UP IN CHAIR. BEDSIDE TABLE PROVIDED. SPRITE AND ICE CREAM SERVED PER REQUEST.
--- NOTE | 2019-01-28 15:45 | NUR ---
THIS RN TO BEDSIDE TO ASSIST PT OOB. PT OOB W/MINIMAL ASSISTANCE. UP TO AMBULATE AT THIS TIME. CURRENTLY RATES PAIN 0/10.
--- NOTE | 2019-01-28 16:00 | NUR ---
pt continues tioo ambulate in halls. returns to room to sit on side of bed and request pain medication for pain 07/22.
--- NOTE | 2019-01-28 17:00 | NUR ---
PT REMAINS IN CHAIR AND NOW IS EATING A REGULAR DIET. TOLERATING WELL.
--- NOTE | 2019-01-28 17:20 | NUR ---
DR WILLOUGHBY ON UNIT AND SEE PT.
--- NOTE | 2019-01-28 17:40 | NUR ---
DR WILLOUGHBY GIVES VERBAL ORDERS THAT PT MAY BE DISCHARGED HOME.
--- NOTE | 2019-01-28 18:13 | NUR ---
PT MEDICATED W/MOTRIN AT THIS TIME. DECLINES PERCOCET.
--- NOTE | 2019-01-28 18:30 | NUR ---
DISCHARGE TEACHING PROVIDED ON INCISION CARE,MARTINEZ CARE, PAIN MEDICATION, SIGNS AND SYMPTOMS OF INFECTION.
--- NOTE | 2019-01-28 18:45 | NUR ---
CURRENTLY MARTINEZ DRAINED W/APPROX 175ML NOTED. MARTINEZ CONVERTED TO LEG BAG. EDUCATION PROVIDED.
--- NOTE | 2019-01-28 19:51 | NUR ---
PT MEDICATED W/PERCOCET 10/325MG PO. FLU SHOT GIVEN. PT TOLERATED WELL.
--- NOTE | 2019-01-28 20:00 | NUR ---
PT DISCHARGED HOME IN STABLE CONDITION.TRANSFERED VIA W/C TO AWAITING CAR TO BE DRIVEN HOME BY HER MOTHER.
--- NOTE | 2019-02-19 12:26 | OP ---
PATIENT NAME: RADAMES KELLEY MEDICAL RECORD: [id number] :88 [facility] [id number] ADMISSION DATE:01/25/19 SURGEON: ABNER WILLOUGHBY DO DATE OF OPERATION: 01/25/2019 PREOPERATIVE DIAGNOSIS: Left ovarian cyst. POSTOPERATIVE DIAGNOSES: Left ovarian cyst, intra-abdominal adhesions. Prelims of large ovarian cyst is benign cystadenoma. PRIMARY SURGEON: Abner Willoughby DO PERINATAL SOCIAL WORKER SURGEON: Dr. Vaca INTRAOPERATIVE CONSULTS: To Dr. Rodriguez with general surgery and Dr. Nettles, urology. PROCEDURES PERFORMED: Left salpingo-oophorectomy, extensive lysis of adhesions, repair of cystotomy, repair of bowel serosa, cystoscopy, and placement of left ureteral stent. FINDINGS: Extensive intra-abdominal adhesions and adhesions of bowel to the bladder. Bladder adhesed to the rectus muscle. Large multiloculated left ovarian cyst, inseparable from the left ovary. SPECIMENS: Left ovary, left ovarian cyst, and left fallopian tube. ESTIMATED BLOOD LOSS: 350 cc. IV FLUIDS: 2400 cc. URINE OUTPUT: 200 cc prior to cystotomy. COMPLICATIONS: Cystotomy noted upon entering into the abdomen at the dome of the bladder. Urology consulted for double-layer repair, cystoscopy and left ureteral stent placement. Multiple adhesions of bowel to posterior portion of the uterus as well as left ovarian cyst that were lyzed. Bowel serosa repaired by general surgery. DESCRIPTION OF THE PROCEDURE: Procedure, the risks, benefits, alternatives, and indications of the procedure were discussed with the patient. She voiced understanding of procedure and signed a consent. She was taken to the OR where general anesthesia was administered and found to be adequate. She was prepped and draped in the normal sterile fashion. She was placed in the dorsal supine position. A Pfannenstiel skin incision was made with the scalpel and carried down to the underlying layer of the fascia with the Bovie. The fascia was incised in the midline and extended laterally. The inferior aspect of the fascial incision was grasped with Staci clamps and the rectus muscles dissected off sharply. Attention was then turned to the superior aspect of the fascial incision and the rectus muscle was dissected off in a similar fashion. The rectus muscle was OPERATIVE REPORT [id number] RADAMES KELLEY grasped with 2 Allises and down to the level of the peritoneum with a scalpel. The peritoneum was identified and noted to be free of adherent bowel and entered bluntly. Upon entering the abdomen, extensive intra-abdominal adhesions were noted. The peritoneum was further with a combination of gentle traction and sharp dissection when the rectus muscle and peritoneum were . The bladder was noted to be adhesed to the posterior portion of the rectus muscle and a bladder laceration was noted. At that time, urology was consulted and urology performed a double-layer closure of the bladder laceration as well as cystoscopy and placement of left ureteral stent, which was dictated separately. Multiple adhesions noted of the bowel to the posterior portion of the uterus as well as adhesed to the cyst and left ovary. These adhesions were lysed. The left IP ligament was doubly ligated and cut. The left ovarian cyst and left fallopian tube were sent to pathology. The pedicle was suture ligated with good hemostasis noted. Due to the manipulation of the bowel as well as multiple bowel adhesions, general surgery was consulted to run the bowel as well as repair of bowel serosa tears. No luminal injury noted. Hemostasis was adequate. The pelvis was irrigated with warm sterile saline and the pedicles and bowel and bladder were reinspected and all noted to be hemostatic and intact. The rectus muscle was closed with 2-0 Monocryl in a running fashion with good hemostasis. The fascia was closed with looped PDS suture. The subcutaneous fat was closed with 2-0 plain suture with good hemostasis. The skin was closed with 3-0 Monocryl in a subcuticular fashion with Dermabond. All needle, laps, sponge, and instrument counts were correct times 2. The Paniagua will remain in place for at least 7 days due to cystotomy. The patient was awakened in the OR in stable condition. TRANSINT:[id number] Voice Confirmation ID: [id number] DOCUMENT ID: [id number] ABNER WILLOUGHBY DO at 1226 CC: [id number] DICTATION DATE: 01/28/191645 INTERNATIONAL CONTROLLER: 01/28/192331 DIS IN 01/28/19 [facility] [address] [place] [address]
== END 2019-01-28 20:00 | disposition home or self-care (01) | DRG 742 ==
LOC: D.OPS 05:30 → D.PAN 07:30 → D.OPS 12:00 → D.LD 13:17 → D.OPS 14:01 → D.LD 14:01 → D.WS 01-27 17:59
PROVIDERS: Surgery; Urology; ADMIT Student in an Organized Health Care Education/Training Program; ATTEND Student in an Organized Health Care Education/Training Program
PROC: 0UT10ZZ Resection of Left Ovary, Open Approach (ICD-10-PCS; 2019-01-25)
PROC: BT1F1ZZ Fluoroscopy of Left Kidney, Ureter and Bladder using Low Osmolar Contrast (ICD-10-PCS; principal; 2019-01-25 07:30)
PROC: 0UT60ZZ Resection of Left Fallopian Tube, Open Approach (ICD-10-PCS; 2019-01-25 07:30)
PROC: 0UN90ZZ Release Uterus, Open Approach (ICD-10-PCS; 2019-01-25 07:30)
PROC: 0T778DZ Dilation of Left Ureter with Intraluminal Device, Via Natural or Artificial Opening Endoscopic (ICD-10-PCS; 2019-01-25 07:30)
PROC: 0DNP0ZZ Release Rectum, Open Approach (ICD-10-PCS; 2019-01-25 07:30)
DX: N83.202 Unspecified ovarian cyst, left side (principal); S37.23XA Laceration of bladder, initial encounter; K91.30 Postprocedural intestinal obstruction, unspecified as to partial versus complete; Y84.9 Medical procedure, unspecified as the cause of abnormal reaction of the patient, or of later complication, without mention of misadventure at the time of the procedure; N80.9 Endometriosis, unspecified; N73.6 Female pelvic peritoneal adhesions (postinfective); R00.0 Tachycardia, unspecified

== ENCOUNTER 2019-01-30 19:41 | Observation (INO) | payer BC, OTHER ==
[~2019-01-30] VITALS: Ht 165.1 cm; Wt 113.6 kg
[2019-01-30 20:30] LABS: BASOPHILS 0.4 % (0-2); EOSINOPHILS 1.4 % (0-7); HEMATOCRIT 28.5 % (36.0-48.0); HEMOGLOBIN 9.1 g/dL (12-16); IMMATURE GRANULOCYTES 0.3 % (0-5); LYMPHOCYTES 20.9 % (15-50); MCH 27.9 pg (26.0-34.0); MCHC 31.9 g/dL (31.0-37.0); MCV 87.4 fL (80.0-100.0); MEAN PLATELET VOLUME 8.4 fL (7.4-10.4); MONOCYTES 9.3 % (2-11); NEUTROPHILS 67.7 % (40-80); RBC 3.26 10x6/uL (4.00-5.40); RDW 14.1 % (11.5-14.5); WBC 7.1 10x3/uL (4.8-10.8)
[2019-01-30 20:36] LABS: PLATELET COUNT 413 10x3/uL (130-400)
[2019-01-30 21:10] LABS: APPEARANCE CLOUDY (CLEAR); COLOR PINK (YELLOW); NITRITE NEGATIVE (NEGATIVE); PROTEIN 2+ mg/dL (NEGATIVE)
[2019-01-30 21:11] LABS: ALBUMIN 2.3 g/dL (3.4-5.0); ALKALINE PHOSPHATASE 58 U/L (46-116); ALT (SGPT) 23 U/L (10-68); AMYLASE - SERUM 24 U/L (25-115); BILIRUBIN - TOTAL 0.21 mg/dL (0.2-1.3); CALCIUM 8.1 mg/dL (8.5-10.1); CARBON DIOXIDE 27.9 mmol/L (21.0-32.0); CHLORIDE - SERUM 104 mmol/L (98-107); CREATININE - SERUM 0.7 mg/dL (0.6-1.3); GLUCOSE 93 mg/dL (74-106); LIPASE 54 U/L (73-393); POTASSIUM - SERUM 3.3 mmol/L (3.5-5.1); PROTEIN - SERUM 5.9 g/dL (6.4-8.2); SODIUM 138 mmol/L (136-145); eGFR NON AFRICAN AMERICAN > 90 mL/min (90-120)
[2019-01-30 21:11] LABS: BILIRUBIN NEGATIVE (NEGATIVE); GLUCOSE NEGATIVE (NEGATIVE); KETONE NEGATIVE (NEGATIVE); UROBILINOGEN NORMAL (NORMAL); WHITE CELLS - URINE 0-5 /hpf (NEGATIVE)
[2019-01-30 21:12] LABS: BACTERIA FEW /hpf (NEGATIVE); EPITHELIAL CELLS NSEEN /hpf (0-5); RED CELLS - URINE >50 /hpf (0-5)
[2019-01-30 21:19] LABS: CALC OSMOLALITY 273 mosm/kg (275-300); UREA NITROGEN 8 mg/dL (7-18)
[2019-01-31] VITALS (7 sets, daily range): BP systolic 110–144; BP diastolic 65–90; Ht 165.1 cm; Wt 113.6 kg
[2019-01-31] MEDS ORDERED: PERCOCET 5-3251 TAB PO (00:11)
[2019-01-31] MEDS ORDERED: IBUPROFEN600 MG PO (00:13)
[2019-01-31] MEDS ORDERED: LEVOFLOXACIN500 MG PO (00:14)
[2019-01-31 05:37] LABS: BASOPHILS 0.3 % (0-2); EOSINOPHILS 1.5 % (0-7); HEMATOCRIT 27.9 % (36.0-48.0); HEMOGLOBIN 8.8 g/dL (12-16); IMMATURE GRANULOCYTES 0.3 % (0-5); LYMPHOCYTES 19.4 % (15-50); MCH 27.8 pg (26.0-34.0); MCHC 31.5 g/dL (31.0-37.0); MEAN PLATELET VOLUME 8.7 fL (7.4-10.4); NEUTROPHILS 68.5 % (40-80); PLATELET COUNT 459 10x3/uL (130-400); RBC 3.17 10x6/uL (4.00-5.40); RDW 14.4 % (11.5-14.5); WBC 7.9 10x3/uL (4.8-10.8)
[2019-01-31 05:56] LABS: CALC OSMOLALITY 274 mosm/kg (275-300); CALCIUM 8.2 mg/dL (8.5-10.1); CARBON DIOXIDE 27.6 mmol/L (21.0-32.0); CHLORIDE - SERUM 104 mmol/L (98-107); CREATININE - SERUM 0.7 mg/dL (0.6-1.3); GLUCOSE 112 mg/dL (74-106); MAGNESIUM - SERUM 2.3 mg/dL (1.8-2.4); PHOSPHOROUS 3.8 mg/dL (2.5-4.9); POTASSIUM - SERUM 3.1 mmol/L (3.5-5.1); SODIUM 138 mmol/L (136-145); UREA NITROGEN 7 mg/dL (7-18); eGFR NON AFRICAN AMERICAN > 90 mL/min (90-120)
[2019-02-01 04:00] VITALS: BP 135/88
[2019-02-01 05:06] LABS: BASOPHILS 0.2 % (0-2); EOSINOPHILS 1.8 % (0-7); HEMATOCRIT 30.9 % (36.0-48.0); HEMOGLOBIN 9.9 g/dL (12-16); IMMATURE GRANULOCYTES 1.6 % (0-5); LYMPHOCYTES 16.8 % (15-50); MCV 87.3 fL (80.0-100.0); MEAN PLATELET VOLUME 9.1 fL (7.4-10.4); MONOCYTES 7.9 % (2-11); NEUTROPHILS 71.7 % (40-80); PLATELET COUNT 452 10x3/uL (130-400); RBC 3.54 10x6/uL (4.00-5.40); RDW 14.2 % (11.5-14.5); WBC 9.6 10x3/uL (4.8-10.8)
[2019-02-01 05:31] LABS: ALBUMIN 2.4 g/dL (3.4-5.0); ALKALINE PHOSPHATASE 59 U/L (46-116); ALT (SGPT) 23 U/L (10-68); BILIRUBIN - TOTAL 0.24 mg/dL (0.2-1.3); CALC OSMOLALITY 272 mosm/kg (275-300); CALCIUM 8.1 mg/dL (8.5-10.1); CARBON DIOXIDE 26.7 mmol/L (21.0-32.0); CHLORIDE - SERUM 103 mmol/L (98-107); GLUCOSE 86 mg/dL (74-106); PROTEIN - SERUM 6.3 g/dL (6.4-8.2); SODIUM 138 mmol/L (136-145); UREA NITROGEN 7 mg/dL (7-18)
[2019-02-01 05:48] LABS: CREATININE - SERUM 0.5 mg/dL (0.6-1.3); POTASSIUM - SERUM 4.2 mmol/L (3.5-5.1); eGFR NON AFRICAN AMERICAN > 90 mL/min (90-120)
[2019-02-01 08:36] VITALS: BP 139/87
[2019-02-01 11:18] LABS: APTT 29.4 SECONDS (22.8-39.4); INR 1.09 (0.85-1.17); PROTIME 13.6 SECONDS (11.6-15.0)
[2019-02-01 12:48] VITALS: BP 133/81
[2019-02-01 16:30] VITALS: BP 132/77
== END 2019-02-01 18:30 | disposition home or self-care (01) ==
LOC: D.ER 19:41 → OBSVTIME 23:16 → D.MS 23:16
PROVIDERS: Family Medicine; General Practice; ADMIT Obstetrics & Gynecology; ATTEND Obstetrics & Gynecology
DX: T81.49XA Infection following a procedure, other surgical site, initial encounter (principal); G89.18 Other acute postprocedural pain

== ENCOUNTER 2019-02-03 15:39 | Emergency (ER) | payer BC, OTHER ==
[~2019-02-03] VITALS: Ht 165.1 cm; Wt 113.6 kg
[~2019-02-03 15:39] MED LIST changes: +IBUPROFEN600 MG PO; +LEVOFLOXACIN500 MG PO; +PERCOCET 5-3251 TAB PO
[2019-02-03 15:50] VITALS: Ht 165.1 cm; Wt 113.6 kg
[2019-02-03] MEDS ORDERED: LEVOFLOXACIN500 MG PO (15:51)
[2019-02-03 18:33] LABS: APPEARANCE CLEAR (CLEAR); BILIRUBIN NEGATIVE (NEGATIVE); COLOR YELLOW (YELLOW); GLUCOSE NEGATIVE (NEGATIVE); KETONE NEGATIVE (NEGATIVE); NITRITE POSITIVE (NEGATIVE); PROTEIN NEGATIVE (NEGATIVE); UROBILINOGEN NORMAL (NORMAL)
[2019-02-03 18:34] LABS: BACTERIA FEW /hpf (NEGATIVE); EPITHELIAL CELLS OCC /hpf (0-5); RED CELLS - URINE 25-50 /hpf (0-5); WHITE CELLS - URINE 0-5 /hpf (NEGATIVE)
[2019-02-03] MEDS ORDERED: HYDROCODONE-A1 UDTA2 PO (19:11)
[2019-02-03] MEDS ORDERED: KEFLEX500 MG PO (19:11)
[2019-02-03 21:27] VITALS: BP 149/98
== END 2019-02-03 19:38 | disposition home or self-care (01) ==
LOC: D.ER 15:39
PROVIDERS: Family Medicine
DX: R31.9 Hematuria, unspecified (principal)

== ENCOUNTER 2019-02-09 05:38 | Day surgery (SDC) | payer BC, OTHER ==
[~2019-02-09] VITALS: Ht 165.1 cm; Wt 121.1 kg
[~2019-02-09 05:38] MED LIST changes: +HYDROCODONE-A1 UDTA2 PO; +KEFLEX500 MG PO
[2019-02-09 05:57] LABS: HEMATOCRIT 33.6 % (36.0-48.0); HEMOGLOBIN 10.7 g/dL (12-16); MCH 27.7 pg (26.0-34.0); MCHC 31.8 g/dL (31.0-37.0); MEAN PLATELET VOLUME 8.7 fL (7.4-10.4); RBC 3.86 10x6/uL (4.00-5.40); RDW 14.1 % (11.5-14.5); WBC 8.4 10x3/uL (4.8-10.8)
[2019-02-09] MEDS ORDERED: KEFLEX500 MG PO (06:41)
[2019-02-09] MEDS ORDERED: AZO STANDARD95 MG PO (06:42)
[2019-02-09 06:43] VITALS: BP 131/83; Ht 165.1 cm; Wt 121.1 kg
--- NOTE | 2019-02-09 10:55 | OP ---
PATIENT NAME: RADAMES KELLEY MEDICAL RECORD: [id number] :88 LOCATION:D.OPS ADMISSION DATE: SURGEON: EDIS SAHU MD DATE OF OPERATION: 02/09/2019 SURGEON: Edis Sahu MD ANESTHESIA: TIVA by Jonathan Murphy CRNA DIAGNOSIS: Retained left ureteral stent. PROCEDURE: Cystoscopy and left ureteral stent removal. SPECIMENS: Left ureteral stent. BLOOD LOSS: None. CLINICAL HISTORY: This is a 28-year-old female, who recently had a left salpingo-oophorectomy for endometriosis. During the surgery due to the large number of adhesions, the bladder was entered into. I went for an intraoperative consultation and I repaired the bladder laceration. Also, at the same time a left ureteral stent was inserted. Subsequently, a cystogram showed that the bladder had healed properly and that there was no leakage. Her Paniagua catheter was removed. She comes now to have the retained ureteral stent removed. She was given Ancef method consultant to the OR. DESCRIPTION OF PROCEDURE: The patient was given IV sedation. She was placed into lithotomy position and prepped and draped. A 21-Uzbek cystoscope with 30-degree lens was used for visualization. The bladder trevizo have nicely healed. The ureteral stent was seen. Grasping forceps were placed on the stent and the stent was entirely removed. The patient will be seen on a p.r.n. basis. TRANSINT:[id number] Voice Confirmation ID: [id number] DOCUMENT ID: [id number] EDIS SAHU MD at 1055 CC: [id number] DICTATION DATE: 02/09/19926 SECURITY AND PRIVACY CONSULTANT: 02/09/19 1049 [facility] [address] [id number]
--- NOTE | 2019-02-09 13:06 | NUR ---
1025 1 NORCO 7.5/325MG PO FOR COMPLAINTS OF INCISIONAL PAIN. RANKS PAIN 06/21. Amy STOKES R.N.
--- NOTE | 2019-02-09 13:15 | NUR ---
1055 DRESSED, AWAKE & ALERT. GIVEN DISCHARGE INFORMATION INCLUDING: MED REC, [facility] OPS D/C INSTRUCTIONS, & POST CYSTOSCOPY D/C INSTRUCTIONS. FOLLOW UP WITH DR. LUIS ALBERTO RUBIO. PT VOICED UNDERSTANDING. TO PRIVATE CAR PER WHEELCHAIR BY STAFF. HOME WITH FATHER. Amy STOKES R.N.
== END 2019-02-09 10:55 | disposition home or self-care (01) ==
LOC: D.OPS 05:38 → D.PAN 08:00 → D.OPS 08:25 → D.PAN 08:25 → D.OPS 10:55 → D.PAN 11:45 → D.OPS 11:45
PROVIDERS: Anesthesiology; ATTEND Urology
DX: Z96.0 Presence of urogenital implants (principal)

== ENCOUNTER → 2019-06-18 09:42 | Outpatient (CLI) | payer BC, OTHER ==
[2019-02-09 06:43] VITALS: BMI 44.5
[~2019-06-18 09:42] MED LIST changes: +AZO STANDARD95 MG PO
== END | disposition home or self-care (01) ==
LOC: D.CT 09:30
PROVIDERS: ATTEND Family Medicine
DX: R10.9 Unspecified abdominal pain (principal)

== ENCOUNTER 2019-07-19 00:29 | Emergency (ER) | payer BC, OTHER ==
[~2019-07-19] VITALS: Ht 165.1 cm; Wt 113.4 kg
[2019-07-19 00:37] VITALS: Ht 165.1 cm; Wt 113.4 kg
[2019-07-19] MEDS ORDERED: BIRTH CONTROL (00:41)
[2019-07-19] MEDS ORDERED: NAPROXEN250 MG PO (00:42)
[2019-07-19 01:00] LABS: HEMATOCRIT 41.2 % (36.0-48.0); HEMOGLOBIN 13.5 g/dL (12-16); LYMPHOCYTES 33.1 % (15-50); MCH 27.4 pg (26.0-34.0); MCHC 32.8 g/dL (31.0-37.0); MCV 83.6 fL (80.0-100.0); MEAN PLATELET VOLUME 9.6 fL (7.4-10.4); NEUTROPHILS 64.9 % (40-80); RBC 4.93 10x6/uL (4.00-5.40); RDW 16.1 % (11.5-14.5); WBC 7.1 10x3/uL (4.8-10.8)
[2019-07-19 01:04] LABS: PLATELET COUNT 354 10x3/uL (130-400)
[2019-07-19 01:15] LABS: BILIRUBIN NEGATIVE (NEGATIVE); GLUCOSE NEGATIVE (NEGATIVE); KETONE NEGATIVE (NEGATIVE); NITRITE NEGATIVE (NEGATIVE); UROBILINOGEN NORMAL (NORMAL)
[2019-07-19 01:18] LABS: BACTERIA MANY /hpf (NEGATIVE); RED CELLS - URINE >50 /hpf (0-5)
[2019-07-19 01:19] LABS: HCG SERUM NEGATIVE (NEGATIVE)
[2019-07-19 01:23] LABS: ALBUMIN 3.7 g/dL (3.4-5.0); ALKALINE PHOSPHATASE 61 U/L (30-120); ALT (SGPT) 43 U/L (10-68); BILIRUBIN - TOTAL 0.37 mg/dL (0.2-1.3); CALC OSMOLALITY 267 mosm/kg (275-300); CALCIUM 8.7 mg/dL (8.5-10.1); CARBON DIOXIDE 23.2 mmol/L (21.0-32.0); CHLORIDE - SERUM 101 mmol/L (98-107); CREATININE - SERUM 0.8 mg/dL (0.6-1.3); GLUCOSE 90 mg/dL (74-106); POTASSIUM - SERUM 4.7 mmol/L (3.5-5.1); PROTEIN - SERUM 7.7 g/dL (6.4-8.2); SODIUM 133 mmol/L (136-145); UREA NITROGEN 17 mg/dL (7-18); eGFR NON AFRICAN AMERICAN 89 mL/min (90-120)
[2019-07-19] MEDS ORDERED: ULTRAM50 MG PO (01:36)
[2019-07-19 02:22] VITALS: BP 138/89
== END 2019-07-19 02:49 | disposition home or self-care (01) ==
LOC: D.ER 00:29
PROVIDERS: Emergency Medicine
DX: N93.9 Abnormal uterine and vaginal bleeding, unspecified (principal); R10.30 Lower abdominal pain, unspecified

== ENCOUNTER 2019-07-22 16:40 | Emergency (ER) | payer BC, OTHER ==
[~2019-07-22] VITALS: Ht 165.1 cm; Wt 113.6 kg
[~2019-07-22 16:40] MED LIST changes: +BIRTH CONTROL; +NAPROXEN250 MG PO; +ULTRAM50 MG PO
[2019-07-22 17:01] VITALS: Ht 165.1 cm; Wt 113.6 kg
[2019-07-22 17:01] LABS: BASOPHILS 0.2 % (0-2); EOSINOPHILS 1.2 % (0-7); HEMOGLOBIN 13.7 g/dL (12-16); IMMATURE GRANULOCYTES 0.1 % (0-5); LYMPHOCYTES 30.9 % (15-50); MCH 27.4 pg (26.0-34.0); MCHC 31.9 g/dL (31.0-37.0); MEAN PLATELET VOLUME 9.6 fL (7.4-10.4); MONOCYTES 9.6 % (2-11); RDW 15.8 % (11.5-14.5); WBC 8.4 10x3/uL (4.8-10.8)
[2019-07-22 17:05] LABS: PLATELET COUNT 466 10x3/uL (130-400)
[2019-07-22 17:08] LABS: BACTERIA FEW /hpf (NEGATIVE); RED CELLS - URINE >50 /hpf (0-5); WHITE CELLS - URINE 0-5 /hpf (NEGATIVE)
[2019-07-22 17:09] LABS: HCG URINE NEGATIVE (NEGATIVE)
[2019-07-22 18:21] LABS: CALC OSMOLALITY 269 mosm/kg (275-300); CALCIUM 8.3 mg/dL (8.5-10.1); CARBON DIOXIDE 19.3 mmol/L (21.0-32.0); CHLORIDE - SERUM 103 mmol/L (98-107); CREATININE - SERUM 0.8 mg/dL (0.6-1.3); GLUCOSE 81 mg/dL (74-106); POTASSIUM - SERUM 3.8 mmol/L (3.5-5.1); SODIUM 136 mmol/L (136-145); UREA NITROGEN 10 mg/dL (7-18); eGFR NON AFRICAN AMERICAN 89 mL/min (90-120)
[2019-07-22 18:29] LABS: ALBUMIN 3.4 g/dL (3.4-5.0); ALKALINE PHOSPHATASE 53 U/L (30-120); ALT (SGPT) 41 U/L (10-68); AMYLASE - SERUM 42 U/L (25-115); BILIRUBIN - TOTAL 0.19 mg/dL (0.2-1.3); LIPASE 57 U/L (73-393); PROTEIN - SERUM 6.8 g/dL (6.4-8.2)
[2019-07-22 18:43] LABS: TROPONIN-I < 0.017 ng/mL (0.000-0.060)
[2019-07-22] MEDS ORDERED: TRAMADOL HCL E100 M1 PO (21:26)
[2019-07-22 21:47] VITALS: BP 139/81
== END 2019-07-22 21:47 | disposition home or self-care (01) ==
LOC: D.ER 16:40
PROVIDERS: Family Medicine
DX: N30.91 Cystitis, unspecified with hematuria (principal); R10.9 Unspecified abdominal pain; M54.5 Low back pain

== ENCOUNTER 2020-07-16 19:48 | Emergency (ER) | payer BC ==
[~2020-07-16] VITALS: Ht 165.1 cm; Wt 113.4 kg
[~2020-07-16 19:48] MED LIST changes: +NAPROSYN500 MG PO; +PEPCID40 MG PO; +TRAMADOL HCL E100 M1 PO
[2020-07-16 20:02] VITALS: Ht 165.1 cm; Wt 113.4 kg
[2020-07-16 20:19] LABS: BASOPHILS 0.2 % (0-2); EOSINOPHILS 0.9 % (0-7); HEMATOCRIT 41.7 % (36.0-48.0); HEMOGLOBIN 13.8 g/dL (12-16); IMMATURE GRANULOCYTES 0.1 % (0-5); LYMPHOCYTE ABS# 2.66 10x3/uL (1.18-3.74); LYMPHOCYTES 30.9 % (15-50); MCH 30.3 pg (26.0-34.0); MCHC 33.1 g/dL (31.0-37.0); MCV 91.4 fL (80.0-100.0); MEAN PLATELET VOLUME 9.3 fL (7.4-10.4); MONOCYTES 7.7 % (2-11); NEUTROPHIL ABS# 5.17 10x3/uL (1.56-6.13); NEUTROPHILS 60.2 % (40-80); PLATELET COUNT 355 10x3/uL (130-400); RBC 4.56 10x6/uL (4.00-5.40); RDW 13.9 % (11.5-14.5); WBC 8.6 10x3/uL (4.8-10.8)
[2020-07-16 20:27] LABS: CALC OSMOLALITY 276 mosm/kg (275-300); CARBON DIOXIDE 25.8 mmol/L (21.0-32.0); CHLORIDE - SERUM 102 mmol/L (98-107); CREATININE - SERUM 0.9 mg/dL (0.6-1.3); INR 1.06 (0.85-1.17); POTASSIUM - SERUM 3.9 mmol/L (3.5-5.1); PROTIME 12.8 SECONDS (11.6-15.0); SODIUM 137 mmol/L (136-145); UREA NITROGEN 14 mg/dL (7-18); eGFR NON AFRICAN AMERICAN 77 mL/min (90-120)
[2020-07-16 20:32] LABS: GLUCOSE 140 mg/dL (74-106)
[2020-07-16 20:43] LABS: ALBUMIN 3.3 g/dL (3.4-5.0); ALKALINE PHOSPHATASE 51 U/L (30-120); ALT (SGPT) 32 U/L (10-68); BILIRUBIN - TOTAL 0.15 mg/dL (0.2-1.3); CKMB 0.2 U/L (0.0-3.6); CREATINE KINASE 46 UL (21-215); PROTEIN - SERUM 7.5 g/dL (6.4-8.2)
[2020-07-16 20:49] LABS: TROPONIN-I < 0.017 ng/mL (0.000-0.060)
[2020-07-16 20:51] VITALS: BP 135/75
[2020-07-16] MEDS ORDERED: ZYRTEC10 MG PO (22:36)
== END 2020-07-16 23:01 | disposition home or self-care (01) ==
LOC: D.ER 19:48
PROVIDERS: Family Medicine
DX: E86.0 Dehydration (principal); J30.2 Other seasonal allergic rhinitis; J02.9 Acute pharyngitis, unspecified; R07.89 Other chest pain

== ENCOUNTER → 2020-07-31 09:05 | Outpatient (CLI) | payer BC, OTHER ==
[2020-07-16 20:02] VITALS: BMI 41.6
[~2020-07-31 09:05] MED LIST changes: +ZYRTEC10 MG PO
== END | disposition home or self-care (01) ==
LOC: D.ECHO 09:05
PROVIDERS: ATTEND Family Medicine
DX: R00.0 Tachycardia, unspecified (principal)

== ENCOUNTER 2020-08-26 04:15 | Observation (INO) | payer BC, OTHER ==
[~2020-08-26] VITALS: Ht 165.1 cm; Wt 113.6 kg
[2020-08-26] MEDS ORDERED: TENORMIN25 MG PO (04:18)
[2020-08-26] MEDS ORDERED: MOBIC7.5 MG PO (04:18)
[2020-08-26 04:46] LABS: BASOPHILS 0.1 % (0-2); EOSINOPHILS 0.4 % (0-7); HEMOGLOBIN 15.8 g/dL (12-16); IMMATURE GRANULOCYTES 0.4 % (0-5); LYMPHOCYTES 9.2 % (15-50); MCH 31.1 pg (26.0-34.0); MCHC 34.3 g/dL (31.0-37.0); MCV 90.6 fL (80.0-100.0); MEAN PLATELET VOLUME 9.5 fL (7.4-10.4); MONOCYTES 5.1 % (2-11); NEUTROPHIL ABS# 13.76 10x3/uL (1.56-6.13); NEUTROPHILS 84.8 % (40-80); PLATELET COUNT 400 10x3/uL (130-400); RBC 5.08 10x6/uL (4.00-5.40); RDW 13.2 % (11.5-14.5); WBC 16.2 10x3/uL (4.8-10.8)
[2020-08-26 04:50] LABS: ANION GAP 16.8 mmol/L (8-16); CALCIUM 9.6 mg/dL (8.5-10.1); CARBON DIOXIDE 24.9 mmol/L (21.0-32.0); POTASSIUM - SERUM 3.7 mmol/L (3.5-5.1)
[2020-08-26 04:56] LABS: ALBUMIN 3.8 g/dL (3.4-5.0); BILIRUBIN - TOTAL 0.34 mg/dL (0.2-1.3); PROTEIN - SERUM 8.4 g/dL (6.4-8.2)
[2020-08-26 05:45] LABS: NITRITE NEGATIVE (NEGATIVE)
[2020-08-26 05:46] LABS: BILIRUBIN NEGATIVE (NEGATIVE); KETONE MODERATE mg/dL (NEGATIVE); UROBILINOGEN NORMAL mg/dL (< 2)
[2020-08-26 06:29] VITALS: BP 129/84
[2020-08-26 08:24] VITALS: Ht 165.1 cm; Wt 113.6 kg
[2020-08-26 09:11] VITALS: BP 126/80
--- NOTE | 2020-08-26 10:16 | NUR ---
PATIENT STATED SHE VOMITTED X 1, AND THAT SHE IS HAVING ALOT OF RIGHT UPPER QUADRANT PAIN. GAVE MORPHINE AND ZOFRAN WELL SCHEDULED MEDS. IV INTACT. NO OTHER COMPLAINTS. CALL LIGHT WITHIN REACH.
[2020-08-26] MEDS ORDERED: LOESTRIN PO (10:24)
[2020-08-26 11:07] LABS: INR 1.15 (0.85-1.17); PROTIME 13.6 SECONDS (11.6-15.0)
--- NOTE | 2020-08-26 12:16 | NUR ---
PATIENT IN BED WITH IV INTACT. NO COMPLAINTS OR SIGNS OF DISTRESS. IV ANTIBIOTIC INFUSING. CALL LIGHT WITHIN REACH.
[2020-08-26 13:20] VITALS: BP 119/71
--- NOTE | 2020-08-26 17:25 | NUR ---
I have reviewed this patient and I concur with the Shift Assessment completed by the Licensed Practical Nurse today this shift.
[2020-08-26 18:27] VITALS: BP 120/69
--- NOTE | 2020-08-26 21:30 | NUR ---
PT STATES IV TO RAC TENDER SHOWERED AND CHANGED CLOTHES IV REPLACED TO LEFT FOREARM ONE STICK 20G IV TO RAC REMOVED TIP INTACT
[2020-08-26 22:08] VITALS: BP 118/73
--- NOTE | 2020-08-27 03:00 | NUR ---
I have reviewed this patient and I concur with the Shift Assessment completed by the Licensed Practical Nurse today this shift.
[2020-08-27 05:54] VITALS: BP 107/58
[2020-08-27 07:39] LABS: ALKALINE PHOSPHATASE 34 U/L (30-120); BILIRUBIN - TOTAL 0.42 mg/dL (0.2-1.3); CALCIUM 7.4 mg/dL (8.5-10.1); CARBON DIOXIDE 22.4 mmol/L (21.0-32.0); CHLORIDE - SERUM 105 mmol/L (98-107); GLUCOSE 81 mg/dL (74-106); POTASSIUM - SERUM 3.2 mmol/L (3.5-5.1); SODIUM 139 mmol/L (136-145)
[2020-08-27 07:43] LABS: ALBUMIN 2.6 g/dL (3.4-5.0); ALT (SGPT) 29 U/L (10-68); CALC OSMOLALITY 275 mosm/kg (275-300); CREATININE - SERUM 0.7 mg/dL (0.6-1.3); LIPASE 19 U/L (73-393); PROTEIN - SERUM 5.9 g/dL (6.4-8.2); UREA NITROGEN 10 mg/dL (7-18); eGFR NON AFRICAN AMERICAN > 90 mL/min (90-120)
--- NOTE | 2020-08-27 07:44 | NUR ---
PRN ZOFRAN AND MORPHINE FOR NAUSEA AND PAIN. TOLERATED WELL. RESTING IN BED, DENIES ANY NEEDS AT THIS TIME. BED IN LOWEST POSITION, BED RAILS X2, CALL LIGHT WITHIN REACH. WILL CONTINUE POC.
[2020-08-27 08:35] LABS: BASOPHILS 0.2 % (0-2); EOSINOPHILS 1.2 % (0-7); IMMATURE GRANULOCYTES 0.2 % (0-5); LYMPHOCYTE ABS# 0.96 10x3/uL (1.18-3.74); LYMPHOCYTES 23.6 % (15-50); MCH 30.7 pg (26.0-34.0); MCHC 33.6 g/dL (31.0-37.0); MCV 91.4 fL (80.0-100.0); MEAN PLATELET VOLUME 9.3 fL (7.4-10.4); MONOCYTES 14.3 % (2-11); NEUTROPHIL ABS# 2.46 10x3/uL (1.56-6.13); NEUTROPHILS 60.5 % (40-80); RDW 13.5 % (11.5-14.5)
--- NOTE | 2020-08-27 08:37 | NUR ---
AAOX4 UPON ENTERING. ADMINISTERED MEDICATIONS, NO DIFFICULTIES. RESTING COMFORTABLY. DENIES ANY NEEDS AT THIS TIME. WILL CONTINUE POC.
[2020-08-27 08:49] LABS: HEMATOCRIT 35.1 % (36.0-48.0); HEMOGLOBIN 11.8 g/dL (12-16); PLATELET COUNT 245 10x3/uL (130-400); RBC 3.84 10x6/uL (4.00-5.40); WBC 4.1 10x3/uL (4.8-10.8)
[2020-08-27 09:42] VITALS: BP 112/74
--- NOTE | 2020-08-27 11:08 | NUR ---
DOSE 1/1 OF KDUR FOR LOW K REPLACEMENT PER PROTOCOL. HUNG IV ABX, TOLERATING WELL. RESTING COMFORTABLY. DENIES FURTHER NEEDS. WILL CONTINUE POC.
--- NOTE | 2020-08-27 11:49 | NUR ---
I have reviewed this patient and I concur with the Shift Assessment completed by the Licensed Practical Nurse today this shift.
--- NOTE | 2020-08-27 12:52 | NUR ---
PRN ZOFRAN AND MORPHINE FOR PAIN AND NAUSEA. RESTING IN BED. VISITOR AT BEDSIDE. DENIES FURTHER NEEDS AT THIS TIME. WILL CONTINUE POC.
[2020-08-27 14:35] VITALS: BP 117/69
--- NOTE | 2020-08-27 15:29 | NUR ---
PRN TYLENOL FOR HEADACHE. DISCONNECTED IV TO SHOWER.
--- NOTE | 2020-08-27 17:04 | NUR ---
ADMINISTERED ZOFRAN AND MORPHINE FOR PAIN AND NAUSEA. TOLERATED WELL. RESTING COMFORTABLY IN BED. DENIES FURTHER NEEDS AT THIS TIME. LEFT FOREARM IV INFILTRATED. WILL DC AND REPLACE.
--- NOTE | 2020-08-27 18:06 | NUR ---
LEFT FOREARM IV INFILTRATED. REMOVED WITH CATHETER TIP INTACT, COVERED WITH GAUZE. TOLERATED WELL. 20GA RESTARTED IN RIGHT FOREARM, RESTARTED FLUIDS. HUNG IV ABX, TOLERATING WELL. RESTING COMFORTABLY. DENIES ANY NEEDS AT THIS TIME. WILL CONTINUE POC.
[2020-08-27 18:35] VITALS: BP 116/72
[2020-08-27 20:00] VITALS: BP 113/71
[2020-08-28] VITALS: BP 114/60; BP 114/62
[2020-08-28 04:00] VITALS: BP 129/71
--- NOTE | 2020-08-28 04:21 | NUR ---
I have reviewed this patient and I concur with the Shift Assessment completed by the Licensed Practical Nurse today this shift.
[2020-08-28 06:03] LABS: BASOPHILS 0.4 % (0-2); EOSINOPHILS 2.3 % (0-7); HEMATOCRIT 34.1 % (36.0-48.0); HEMOGLOBIN 11.4 g/dL (12-16); IMMATURE GRANULOCYTES 0.2 % (0-5); LYMPHOCYTES 29.1 % (15-50); MCH 30.6 pg (26.0-34.0); MCHC 33.4 g/dL (31.0-37.0); MCV 91.4 fL (80.0-100.0); MEAN PLATELET VOLUME 9.4 fL (7.4-10.4); NEUTROPHIL ABS# 2.79 10x3/uL (1.56-6.13); PLATELET COUNT 270 10x3/uL (130-400); RBC 3.73 10x6/uL (4.00-5.40); RDW 13.6 % (11.5-14.5); WBC 4.8 10x3/uL (4.8-10.8)
[2020-08-28 07:00] LABS: ALBUMIN 2.5 g/dL (3.4-5.0); ALKALINE PHOSPHATASE 32 U/L (30-120); ALT (SGPT) 33 U/L (10-68); BILIRUBIN - TOTAL 0.22 mg/dL (0.2-1.3); CALC OSMOLALITY 276 mosm/kg (275-300); CALCIUM 7.2 mg/dL (8.5-10.1); CARBON DIOXIDE 22.2 mmol/L (21.0-32.0); CHLORIDE - SERUM 109 mmol/L (98-107); CREATININE - SERUM 0.6 mg/dL (0.6-1.3); GLUCOSE 79 mg/dL (74-106); POTASSIUM - SERUM 3.3 mmol/L (3.5-5.1); PROTEIN - SERUM 5.8 g/dL (6.4-8.2); SODIUM 141 mmol/L (136-145); eGFR NON AFRICAN AMERICAN > 90 mL/min (90-120)
[2020-08-28 07:02] LABS: UREA NITROGEN 5 mg/dL (7-18)
[2020-08-28 08:00] VITALS: BP 120/71
--- NOTE | 2020-08-28 09:01 | NUR ---
AWAKE AND ALERT. ORIENTED X3. REQUESTED AND GIVEN 4MG MORPHINE WITH 4MG ZOFRAN SLOW IVP FOR C/O PAIN TO LEFT ABDOMEN LEVEL 8. WILL MONITOR. LUNGS ARE CLEAR BILATERALLY, NO COUGH NOTED. SKIN IS INTACT WITHOUT REDNESS. IV TO RIGHT FOREARM IS PATENT WITHOUT REDNESS AT INSERTION SITE. DENIES NEEDS. MOM AT BEDSIDE.
--- NOTE | 2020-08-28 12:27 | NUR ---
REQUESTED AND GIVEN 4MG MORPHINE IWTH 4MG ZOFRAN SLOW IVP FOR C/O ABDOMINAL PAIN AND NAUSEA. WILL MONITOR.
--- NOTE | 2020-08-28 13:40 | NUR ---
OFF UNIT VIA BED FOR SURGERY.
[2020-08-28 16:19] VITALS: BP 101/64
--- NOTE | 2020-08-28 16:20 | NUR ---
RETURNED FROM SURGERY. A/O X3. MOM AT BEDSIDE. DENIES NEEDS.
[2020-08-28] MEDS ORDERED: CEPHALEXIN500 M1 PO (17:11)
[2020-08-28] MEDS ORDERED: HYDROCODON-ACE1 EAC7 PO (17:12)
--- NOTE | 2020-08-28 18:30 | NUR ---
DISCHARGE ORDERS RECEIVED. DISCHARGED TO HOME AMBULATORY WITH FAMILY. DISCHARGE INSTRUCTIONS GIVEN BOTH VERBALLY AND WRITTEN. ALL QUESTIONS ANSWERED. PATIENT AND MOM VERBALIZED UNDERSTANDING OF SAME. NEEDED PRESCRIPTIONS GIVEN TO PATIENT. IV TO RIGHT FOREARM D/C WITH CATHETER INTACT. ALL BELONGINGS WITH PATIENT.
== END 2020-08-28 18:30 | disposition home or self-care (01) ==
LOC: D.ER 04:15 → OBSVTIME 08:07 → D.MS 08:07
PROVIDERS: Emergency Medicine; Family Medicine; Surgery; ADMIT Emergency Medicine; ATTEND Emergency Medicine
DX: K80.00 Calculus of gallbladder with acute cholecystitis without obstruction (principal); I10 Essential (primary) hypertension; R10.11 Right upper quadrant pain; R11.2 Nausea with vomiting, unspecified; R19.7 Diarrhea, unspecified; J44.9 Chronic obstructive pulmonary disease, unspecified; E86.0 Dehydration; E66.9 Obesity, unspecified; D72.829 Elevated white blood cell count, unspecified; K52.9 Noninfective gastroenteritis and colitis, unspecified; Z68.41 Body mass index [BMI] 40.0-44.9, adult

== ENCOUNTER 2020-10-03 14:15 | Outpatient (CLI) | payer BC, OTHER ==
[2020-08-26 08:24] VITALS: BMI 41.6
[~2020-10-03 14:15] MED LIST changes: +CEPHALEXIN500 M1 PO; +HYDROCODON-ACE1 EAC7 PO; +LOESTRIN PO; +MOBIC7.5 MG PO; +TENORMIN25 MG PO
== END 2020-10-03 23:59 | disposition home or self-care (01) ==
LOC: D.MAMMO 14:15
PROVIDERS: ATTEND Student in an Organized Health Care Education/Training Program
DX: N63.14 Unspecified lump in the right breast, lower inner quadrant (principal)